=== PATIENT | male | born 1970 | race Caucasian/White ===

== ENCOUNTER 2018-11-21 10:31 | Emergency (ER) | payer OTHER ==
[~2018-11-21] VITALS: Ht 188 cm; Wt 95.8 kg
[2018-11-21 10:32] VITALS: BP 131/91
[2018-11-21] MEDS ORDERED: KETOROLAC 30 MG/ML VIAL (J1885) IV ONE (13:45)
[2018-11-21] MEDS ORDERED: LIDOCAINE 5% (LIDODERM) PATCH TD ONE (13:45)
[2018-11-21] MEDS ORDERED: CYCLOBENZAPRINE 5MG TABLET PO ONE (13:45)
[2018-11-21] MEDS ORDERED: IBUP-1022 PO (13:47)
[2018-11-21] MEDS ORDERED: CYCL5TAB PO (13:47)
[2018-11-21] MEDS ORDERED: LIDO5DIS41 TD (13:47)
[2018-11-21] MEDS ORDERED: KETOROLAC 30 MG/ML VIAL (J1885) IM ONE (14:00)
== END 2018-11-21 14:26 | disposition home or self-care (01) ==
LOC: M ED 10:31
DX: G89.29 Other chronic pain (principal); M54.6 Pain in thoracic spine; F17.210 Nicotine dependence, cigarettes, uncomplicated
CPT/HCPCS: 96372; 99283; J1885